=== PATIENT | female | born 1985 | race Caucasian/White ===

== ENCOUNTER 2017-04-04 03:24 | Emergency (ER) | payer OTHER | END 2017-04-04 06:20 | disposition home or self-care (01) | LOC: ER 03:24 | DX: K80.70 Calculus of gallbladder and bile duct without cholecystitis without obstruction (principal); F17.210 Nicotine dependence, cigarettes, uncomplicated; Z97.5 Presence of (intrauterine) contraceptive device | CPT/HCPCS: 36415; 96361; 96374; 96375 ==